=== PATIENT | female | born 1970 | race Caucasian/White ===

== ENCOUNTER 2016-05-01 19:27 | Emergency (ER) | payer OTHER ==
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
--- NOTE | 2016-05-01 21:27 | ED ORDER SUMMARY ---
..... Patient: MICAH MICHELLE OrderSheet [facility] VisitID: [id number] [address] [place] [address] 45y, F Registration Date/Time: 05/01/2016 ORDER SHEET Weight: 63.5 kg (stated) Allergies: Bee stings GENERAL ORDERS: CT Head wo Cont (On Lovenox) Urgent (19:59 05/01/2016 Chinedu Trujillo) (Ack 20:06 Jose) (0:49 Cj Weller) MEDICATION ORDERS: IV FLUIDS: ORDER SHEET NOTES: [Electronically signed by Rufino Gandara Dr. (22:20 05/01/2016)] [Electronically signed by Arnol Steven R.N. (00:49 05/02/2016)] [Electronically locked/signed by Arnol Steven R.N. (00:49 05/02/2016)]
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
--- NOTE | 2016-05-01 21:27 | ED ORDER SUMMARY ---
..... Patient: MICAH MICHELLE OrderSheet [facility] VisitID: [id number] [address] [place] [address] 45y, F Registration Date/Time: 05/01/2016 ORDER SHEET Weight: 63.5 kg (stated) Allergies: Bee stings GENERAL ORDERS: CT Head wo Cont (On Lovenox) Urgent (19:59 05/01/2016 Chinedu Trujillo) (Ack 20:06 Jose) (0:49 Cj Weller) MEDICATION ORDERS: IV FLUIDS: ORDER SHEET NOTES: [Electronically signed by Rufino Gandara Dr. (22:20 05/01/2016)] [Electronically signed by Arnol Steven R.N. (00:49 05/02/2016)] [Electronically locked/signed by Arnol Steven R.N. (00:49 05/02/2016)]
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
--- NOTE | 2016-05-02 00:50 | ED MAR SUMMARY ---
..... Medication Administration Record [facility] [address], [place] [id number] Patient: MICAH MICHELLE Visit ID: [id number] 45y, F Weight: 63.5 kg Height/Length: 63 in BMI: 24.8 ALLERGIES: Bee stings
--- NOTE | 2016-05-02 00:50 | ED MED RECONCILIATION SUMMARY ---
Patient: MICAH MICHELLE Medication Reconciliation Report [facility] VisitID: [id number] [address] [place] [address] 45y, F Registration Date/Time: 05/01/2016 Weight: 63.5 kg Height/Length: 63 in. BMI: 24.8 ALLERGIES: Bee stings The patient's Home Medications are listed below: THE FOLLOWING MEDICATIONS NEED TO BE RECONCILED: Anoxiparin 60bid sq Dilaudid 8mg qid The source(s) of the original Home Medication information: patient The following Medications were given to the patient in the Emergency Department: None. The following Medications were prescribed to the patient: None.
--- NOTE | 2016-05-02 00:50 | ED MED RECONCILIATION SUMMARY ---
Patient: MICAH MICHELLE Medication Reconciliation Report [facility] VisitID: [id number] [address] [place] [address] 45y, F Registration Date/Time: 05/01/2016 Weight: 63.5 kg Height/Length: 63 in. BMI: 24.8 ALLERGIES: Bee stings The patient's Home Medications are listed below: THE FOLLOWING MEDICATIONS NEED TO BE RECONCILED: Anoxiparin 60bid sq Dilaudid 8mg qid The source(s) of the original Home Medication information: patient The following Medications were given to the patient in the Emergency Department: None. The following Medications were prescribed to the patient: None.
--- NOTE | 2016-05-02 00:50 | ED MAR SUMMARY ---
..... Medication Administration Record [facility] [address] [place], [place] [id number] Patient: MICAH MICHELLE Visit ID: [id number] 45y, F Weight: 63.5 kg Height/Length: 63 in BMI: 24.8 ALLERGIES: Bee stings
== END 2016-05-01 21:35 | disposition left against medical advice (07) ==
LOC: ED SRH 19:27
DX: S09.90XA Unspecified injury of head, initial encounter (principal); Y04.2XXA Assault by strike against or bumped into by another person, initial encounter; Y93.9 Activity, unspecified; Y92.009 Unspecified place in unspecified non-institutional (private) residence as the place of occurrence of the external cause; Y99.9 Unspecified external cause status; R93.0 Abnormal findings on diagnostic imaging of skull and head, not elsewhere classified; Z85.72 Personal history of non-Hodgkin lymphomas